=== PATIENT | female | born 1950 | race Caucasian/White ===

== ENCOUNTER 2022-04-19 11:39 | Outpatient (CLI) | payer MEDICARE, BC, SELFPAY ==
[2022-04-19 13:52] LABS: Basophils Percent Auto 0.8 % (0.0-3.0); Eosinophils Percent Auto 2.3 % (0.0-7.0); Hematocrit 47.6 % (33.0-51.0); Lymphocytes Percent Auto 39.5 % (20-44); Mean Corpuscular HGB Conc 32 gm/dL (32-36); Mean Corpuscular Hemoglobin 30 pg (26-34); Mean Corpuscular Volume 96 fL (80-100); Monocytes Percent Auto 8.3 % (0.0-11.0); Neutrophils Percent Auto 49.1 % (42.0-72.0); Platelet Count* 262 K/uL (140-440); RDW Coefficient of Variation % 13.4 % (11.5-15.5); Red Blood Count 4.97 m/uL (4.00-5.20); White Blood Count* 3.97 K/uL (4.50-11.00)
[2022-04-19 14:01] LABS: Slide Review Reflex No
[2022-04-19 14:02] LABS: Chloride* 108 mmol/L (96-114); Potassium* 4.8 mmol/L (3.6-5.1); Sodium* 142 mmol/L (135-149)
[2022-04-19 14:05] LABS: Carbon Dioxide* 26 mmol/L (20-32); Creatinine* 0.7 mg/dL (0.5-1.5); Estimated Glomerular Filt Rate 91 ml/min
[2022-04-19 14:06] LABS: Blood Urea Nitrogen* 29 mg/dL (7-30); Calcium* 10.3 mg/dL (8.4-10.6); Glucose* 126 mg/dL (60-115)
[2022-04-19 14:27] LABS: C Reactive Protein* < 0.5 mg/dL (0.5-1.0)
[2022-04-19 14:53] LABS: Thyroid Stimulating Hormone* 0.701 uIU/mL (0.270-4.20)
[2022-04-20 17:59] LABS: Rheumatoid Factor < 10 IU/mL (0-14)
[2022-04-21 05:08] LABS: Anti-Nuclear Ab(ANA)IgG ELISA None Detected (None Detected)
== END 2022-04-19 11:40 | disposition home or self-care (01) ==
PROVIDERS: PCP Family Medicine; Visit Provider Family Medicine
DX: Z00.00 Encounter for general adult medical examination without abnormal findings (principal); R53.83 Other fatigue; R21 Rash and other nonspecific skin eruption
CPT/HCPCS: 80048; 84443; 85025; 86039; 86140; 86431

== ENCOUNTER 2022-06-21 15:00 | Outpatient (CLI) | payer MEDICARE, BC, SELFPAY ==
--- NOTE | 2022-06-21 15:20 | CRLHL7_ITS ---
For Patients: As a result of the Century Cures Act, medical imaging exams and procedure reports are released immediately into your electronic medical record. You may view this report before your referring provider. If you have questions, please contact your health care provider. BILATERAL SCREENING MAMMOGRAM WITH COMPUTER-AIDED DETECTION TECHNIQUE: CC and MLO views were obtained. These mammographic images have been obtained using full-field digital technique. These mammographic images were interpreted with the benefit of computer-aided detection. COMPARISON FILM: 06/08/21, 06/05/19, 05/07/17. FINDINGS: There are scattered areas of fibroglandular density IMPRESSION: There is no radiographic evidence for malignancy. ASSESSMENT: BI-RADS Category 1: Negative RECOMMENDATION: Routine screening mammogram in 1 year. A lay language report of this examination will be provided to the patient. Sivakumar Bautista M.D. Diagnostic Radiologist [email or web address] ELSA/Dictated by: Sivakumar Bautista MD @ 06/23/2022 8:27:00 AM (Electronically Signed)
== END 2022-06-21 15:01 | disposition home or self-care (01) ==
LOC: MAMMO 15:02
PROVIDERS: PCP Family Medicine; Visit Provider Family Medicine
DX: Z12.31 Encounter for screening mammogram for malignant neoplasm of breast (principal)
CPT/HCPCS: 77063; 77067

== ENCOUNTER 2023-04-27 13:44 | Outpatient (CLI) | payer MEDICARE, BC, SELFPAY | END 2023-04-27 13:45 | disposition home or self-care (01) | PROVIDERS: PCP Family Medicine; Visit Provider Family Medicine | DX: E78.5 Hyperlipidemia, unspecified (principal); R53.83 Other fatigue; M81.0 Age-related osteoporosis without current pathological fracture | CPT/HCPCS: 80048; 80061; 84443 ==

== ENCOUNTER 2023-07-03 16:02 | Outpatient (CLI) | payer MEDICARE, BC, SELFPAY ==
--- NOTE | 2023-07-03 16:45 | CRLHL7_ITS ---
For Patients: As a result of the Century Cures Act, medical imaging exams and procedure reports are released immediately into your electronic medical record. You may view this report before your referring provider. If you have questions, please contact your health care provider. BILATERAL SCREENING MAMMOGRAM WITH COMPUTER-AIDED DETECTION TECHNIQUE: CC and MLO views were obtained. These mammographic images have been obtained using full-field digital technique. These mammographic images were interpreted with the benefit of computer-aided detection. COMPARISON FILM: 06/21/22, 06/08/21, 06/05/19. FINDINGS: There are scattered areas of fibroglandular density IMPRESSION: There is no radiographic evidence for malignancy. ASSESSMENT: BI-RADS Category 2: Benign RECOMMENDATION: Routine screening mammogram in 1 year. A lay language report of this examination will be provided to the patient. Sivakumar Bautista M.D. Diagnostic Radiologist [email or web address] Transcribed: 6:33 p.arline balbuena/Dictated by: Sivakumar Bautista MD @ 07/04/2023 1:09:00 PM (Electronically Signed)
== END 2023-07-03 16:03 | disposition home or self-care (01) ==
LOC: MAMMO 16:03
PROVIDERS: PCP Family Medicine; Visit Provider Family Medicine
DX: Z12.31 Encounter for screening mammogram for malignant neoplasm of breast (principal)
CPT/HCPCS: 77067

== ENCOUNTER 2024-04-29 14:39 | Outpatient (CLI) | payer MEDICARE, BC, SELFPAY | END 2024-04-29 14:40 | disposition home or self-care (01) | PROVIDERS: PCP Family Medicine; Visit Provider Family Medicine | DX: Z13.6 Encounter for screening for cardiovascular disorders (principal); Z13.9 Encounter for screening, unspecified | CPT/HCPCS: 80048; 80061; 85025 ==

== ENCOUNTER 2024-08-15 13:37 | Outpatient (CLI) | payer MEDICARE, BC, SELFPAY ==
--- NOTE | 2024-08-15 14:00 | CRLHL7_ITS ---
For Patients: As a result of the Century Cures Act, medical imaging exams and procedure reports are released immediately into your electronic medical record. You may view this report before your referring provider. If you have questions, please contact your health care provider. BILATERAL SCREENING MAMMOGRAM WITH COMPUTER-AIDED DETECTION TECHNIQUE: CC and MLO views were obtained. These mammographic images have been obtained using full-field digital technique. These mammographic images were interpreted with the benefit of computer-aided detection. COMPARISON FILM: 07/03/23, 06/21/22, 06/08/21. FINDINGS: There are scattered areas of fibroglandular density. IMPRESSION: There is no radiographic evidence for malignancy. ASSESSMENT: BI-RADS Category 2: Benign RECOMMENDATION: Routine screening mammogram in 1 year. A lay language report of this examination will be provided to the patient. Preet Allen M.D. Diagnostic/Nuclear Medicine Radiologist [email or web address] SP/Dictated by: Preet Allen MD @ 08/20/2024 9:17:00 AM (Electronically Signed)
== END 2024-08-15 13:38 | disposition home or self-care (01) ==
LOC: MAMMO 13:39
PROVIDERS: PCP Family Medicine; Visit Provider Family Medicine
DX: Z12.31 Encounter for screening mammogram for malignant neoplasm of breast (principal)
CPT/HCPCS: 77067

== ENCOUNTER 2024-09-30 13:45 | Outpatient (RCR) | payer MEDICARE, BC, SELFPAY ==
--- NOTE | 2024-09-02 16:58 | PT.OPEX ---
PT [place] Outpatient Eval PT [facility] Outpatient Eval Start: 09/02/24 12:56 Freq: Status: Active Protocol: Document 09/02/24 12:57 [facility] (Rec: 09/02/24 14:05 [facility] [id number]) E-signed By Kane Boone, PT Physical Therapy Outpatient Evaluation Insurance Information Insurance Name Medicare B Medical Diagnosis Pain in right knee M25.61 Treating Diagnosis Right knee pain M25.61 Muscle weakness M62.81 Postural dysfunction (genu valgus) R29.3 Imaging Report Information 12/01/23: x-ray R knee: mild patellofemoral compartment arthrosis R hip: mild hip DJD Referring MD Kwame Escobedo PA-C Subjective Preferred Name Eboni Subjective I know my body really well. Eboni has experienced many different treatments, kinesiology, acupuncture, health care liaison. Presents with right knee pain that started ~1 year ago. Insidious onset, but Eboni feels it may be related to right hip pain that she had been experiencing prior to onset of R knee pain. She also has a neuroma on her right foot. Pain is intermittent. Described as R lateral knee aching Aggravating: stairs (uses step to pattern), twisting, walking (goal: 2 miles/day), getting down to/up from floor She has an elliptical management trainer for sitting No prescription meds. Takes turmeric, ALA PMH: low back pain (injury post PT session ~5 years ago, in [place]), osteoporosis, arthritis, neuroma R foot, hypermobility, neck injury as a child Pain Comments 4-12/06, right lateral knee Date of Last Physician Visit 08/12/24 Current Work Status Retired Precautions Treatment Precautions/Contraindications osteoporosis Weight Bearing Status Full Weight Bearing Objective Other/Pertinent Objective Ambulation: heel toe gait pattern, no limp today, genu valgus autumn, slight right pelvis elevation SL heel raises: R 10x (low amplitude) L 10x R LE: ROM WNL (mild hypermobility w/ hip ER) R LE strength: grossly 5/5 and pain free except hip abduction and extension 4/5, still pain free R knee special tests: Meniscus negative (Thessaly and McMurrays) patellar compression: negative palpation: patellar hypermobility, non painful +TTP right distal ITB, TFL, and lateral knee joint line non tender GT Functional Test Performed & Score 4 Stage balance test: Feet together 10 sec (EO & EC) 1/2 tandem stance 10 sec, tandem stance 10 sec (mild/mod sway) SLS: R 9 sec L 10 sec - Low fall risk Assessment Assessment/Impression 74 year old female presents with right lateral knee pain, insidious onset ~ 1 year ago, that is slowly improving but still limits her functional mobility from her baseline of ambulating ~2 miles/day and climbing stairs reciprocally pain free. While an x-ray last spring showed mild patellofemoral DJD , this does not appear to be the direct source of her knee pain. I suspect postural dysfunction of bilateral genu valgus (lateral compartment pressure) and ITB dysfunction as primary contributors to her R knee symptoms. Underlying general joint hypermobility also makes her more prone to injury. I recommend continued skilled PT for manual therapy to reduce ITB/TFL soft tissue irritability as well as progression in a HEP to facilitate closed chain glute/ quad strengthening and motor control. Primary Functional Limitations prolonged ambulation, stairs, twisting Plan of Care Rehabilitation Potential Excellent Physical Therapy Goals In 6-8 weeks, patient will: 1) Resume ambulating 2 miles/ day, right knee pain max 1/10 2) Be able to ambulate up/down stairs reciprocally, w/ one rail, knee pain max 2/10 3) Be I with HEP to facilitate continued strengthening of LEs to prevent reinjury Coordination/Communication With Referral Source Treatment Plan/Direct Interventions Manual Therapy,Neuromuscular Re-ed,Self-Care/Home Management,Therapeutic Activities,Therapeutic Exercises Direct Interventions Clarification HEP progression, MT to right Comments ITB/hip Frequency/Duration ~1x/week for 6-8 weeks Patient Will Be Discharged From Therapy Completion of LTG(s), Independent w/HEP, Independently Progressing Evaluation Billing Untimed Code Treatment Minutes 30 Complexity Moderate Certification Information Initial Certification Date 09/02/24 Ending Certification Date 11/25/24 Provider Signature Required Yes Provider Signature Shows Agreement With POC & Medical Necessity Physician NPI Number Write NPI# Here Physician Comment/Change : Physician Signature & Date Requested Please Sign/Date Here
== END 2024-10-01 08:11 | disposition home or self-care (01) ==
PROVIDERS: PCP Family Medicine; Visit Provider Physician Assistant Surgical
DX: M25.561 Pain in right knee (principal); M62.81 Muscle weakness (generalized); R29.3 Abnormal posture; Z51.89 Encounter for other specified aftercare; M54.50 Low back pain, unspecified
CPT/HCPCS: 97110; 97112; 97140; 97162

== ENCOUNTER 2024-11-20 12:30 | Outpatient (RCR) | payer MEDICARE, BC, SELFPAY ==
--- NOTE | 2024-09-23 15:47 | PT.OPEX ---
PT [place] Outpatient Eval PT [facility] Outpatient Eval Start: 09/23/24 13:25 Freq: Status: Active Protocol: Document 09/23/24 13:27 CRP (Rec: 09/23/24 15:44 CRP [id number]) E-signed By Ar Keating, PT Physical Therapy Outpatient Evaluation Insurance Information Recert Due Date 12/22/24 Insurance Name Medicare B Medical Diagnosis Low Back Pain Referring MD Dr Quezada Subjective Subjective Pt reports a long hx of LBP and hip pain. 1999 bent forward and had pop with significant pain. This was associated with pain down the front of the L thigh. Has had times that this has gotten better off and on. About 8 years ago had R foot neuroma. This affected her walking. Had episode of R sided nerve pain one year then another year it went down the L LE. 2018 she had an episode of PT for trunk strengthening. Did the whole set of appts but must have over done it. Within 2 days she had a severe flare. Most recent pain is focused at the L SI jt but can go across the whole low back and into bilat gluteals. Catching with going from bent to standing. Does have some tingling/nerve like sxs into bilat feet. Pain is more with standing, walking, going shopping, carrying groceries up stairs. Feels better with lying down and sitting. Xrays showed mild OA. Is currently going to PT for R knee pain. Pain Comments 12/06 Current Work Status Retired Objective Other/Pertinent Objective Posture: passive ext pattern, L lumbar scoliosis Trunk ROM: flex WNL - restricted going back up to neutral, Ext mod/marisa dec, R SB WNL, L SB min.mod dec, Bilat rot WNL Hip ROM: L WNL, R ER 40 deg, IR 8 deg SLR 90 deg bilat MMT: Myotomes WNL. Lumbopelvic flex 3-/5. Bridge strength 3+/5 Segmental testing: unable to tolerate prone positioning. SL segmental mobility restricted at lower lumbar spine into bilat rot and UPA mobs. Pain noted R Lower lumbar spine. Assessment Assessment/Impression Pt presents to the clinic with signs and sxs consistent with lumbar spine DDD/DJD and resulting issues related to extension based functional activity and exercise. Skilled PT is necessary to incorporate ther ex, nm fer, manual therapy and pt education to decrease pain and improve functional mobility. 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 Pt will be independent with HEP x 8 wks. 2. Pt will carry groceries up stairs with 80% decrease in pain in 10 weeks. 3. 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 Coordination/Communication With Referral Source Treatment Plan/Direct Interventions Manual Therapy,Neuromuscular Re-ed,Self-Care/Home Management,Therapeutic Activities,Therapeutic Exercises Frequency/Duration 1-2x/wk for 12 weeks Patient Will Be Discharged From Therapy Completion of LTG(s),Skills Plateau,Independent w/HEP, Independently Progressing Evaluation Billing Untimed Code Treatment Minutes 40 Complexity Moderate Certification Information Initial Certification Date 09/23/24 Ending Certification Date 12/22/24 Provider Signature Required Yes Provider Signature Shows Agreement With POC & Medical Necessity Physician NPI Number Write NPI# Here Physician Comment/Change : Physician Signature & Date Requested Please Sign/Date Here
== END 2025-03-20 23:59 | disposition home or self-care (01) ==
PROVIDERS: PCP Family Medicine; Visit Provider Family Medicine
DX: M54.50 Low back pain, unspecified (principal); Z51.89 Encounter for other specified aftercare
CPT/HCPCS: 97110; 97140; 97162

== ENCOUNTER 2025-04-30 12:34 | Outpatient (CLI) | payer MEDICARE, BC, SELFPAY | END 2025-04-30 12:35 | disposition home or self-care (01) | PROVIDERS: PCP Family Medicine; Visit Provider Family Medicine | DX: Z13.6 Encounter for screening for cardiovascular disorders (principal); K21.9 Gastro-esophageal reflux disease without esophagitis; R53.83 Other fatigue; E55.9 Vitamin D deficiency, unspecified | CPT/HCPCS: 80048; 80061; 82306; 84443; 85025 ==

== ENCOUNTER 2025-06-18 18:33 | Outpatient (CLI) | payer MEDICARE, BC, SELFPAY ==
--- NOTE | 2025-06-18 19:00 | CRLHL7_ITS ---
For Patients: As a result of the Century Cures Act, medical imaging exams and procedure reports are released immediately into your electronic medical record. You may view this report before your referring provider. If you have questions, please contact your health care provider. Indication: Low back pain. Technique: Noncontrast sagittal and axial T1, T2, and sagittal STIR sequences are provided. Comparison: Lumbar radiographs 06/10/2025 Findings: Transitional lumbosacral anatomy with partial lumbarization of the S1 vertebral body on the right side. Rudimentary S1 disc. Exaggeration of lumbar lordosis. Retrolisthesis at L2-3 at L3-4 and grade 1 anterolisthesis at L5-S1. The conus medullaris is located at L2-3. No intradural pathology. No fracture. Small Schmorl`s nodes in the T12, L2, and L3 inferior endplates. T12-L1: Minimal disc bulge. No spinal canal stenosis or neural foramen narrowing. L1-2: Small central protrusion. No significant spinal canal stenosis or neural foraminal narrowing. L2-3: Retrolisthesis. Mild disc bulge. No significant spinal canal stenosis or neural foraminal narrowing. L3-4: Mild disc bulge. Mild facet joint arthrosis. No significant spinal canal stenosis. Mild left neural foraminal narrowing. L4-5: Mild disc bulge. Moderate facet joint arthrosis and left ligamentum flavum buckling. Mild facet joint effusions. Mild left subarticular recess stenosis. No neural foraminal narrowing. L5-S1: Grade 1 anterolisthesis. Mild disc bulge and moderate facet arthrosis. Ligamentum flavum buckling. No significant spinal canal stenosis or neural foraminal narrowing. S1-S2: Moderate right facet joint arthrosis. Fused left facet joint. No significant spinal canal stenosis or neural foraminal narrowing. Impression: 1. No acute osseous or ligamentous abnormality. Transitional anatomy with partial lumbarization of the S1 vertebral body on the right side. Multilevel retrolisthesis. Grade 1 anterolisthesis at L5-S1. 2. Mild left subarticular recess narrowing at L4-5. No significant spinal canal stenosis or neural foraminal narrowing. Dictated by Sivakumar Bravo MD @ 06/19/2025 10:36:19 AM (Electronically Signed)
== END 2025-06-18 18:34 | disposition home or self-care (01) ==
LOC: MRI 18:34
PROVIDERS: PCP Family Medicine; Visit Provider Family Medicine
DX: M51.26 Other intervertebral disc displacement, lumbar region (principal); G89.29 Other chronic pain
CPT/HCPCS: 72148